=== PATIENT | male | born 1965 | race Caucasian/White ===

== ENCOUNTER → 2016-12-08 | Outpatient (CLI) | payer MEDICAID ==
[2015-03-18 19:29] VITALS: BP 155/99
[2016-12-08 09:26] LABS: BASOPHILS # (AUTO) 0.1 X10^3/uL (0.0-0.1); HEMATOCRIT 48.9 % (42.0-54.0); LYMPHOCYTES % (AUTO) 34.1 % (21.0-51.0); MEAN CORPUSCULAR HEMOGLOBIN 34.4 pg (27.0-34.0); MEAN CORPUSCULAR HGB CONC 34.8 g/dL (33.0-35.0); MEAN CORPUSCULAR VOLUME 98.8 fL (80.0-100.0); MEAN PLATELET VOLUME 8.2 fL (7.4-11.0); MONOCYTES # (AUTO) 0.7 x10^3/uL (0.3-0.8); MONOCYTES % (AUTO) 7.8 % (0.0-13.0); NEUTROPHILS % (AUTO) 46.1 % (42.0-75.0); PLATELET COUNT 200 X10^3/uL (150.0-450.0); RED BLOOD COUNT 4.95 X10^6/uL (4.7-6.0); RED CELL DISTRIBUTION WIDTH 13.7 % (11.6-16.5); WHITE BLOOD COUNT 8.7 X10^3/uL (3.6-10.0)
--- NOTE | 2016-12-08 09:41 | RAD ---
Examination: X-rays of the left knee. Clinical history: Left knee pain. Technique: Three views of the left knee were obtained. Comparison: None available. Findings: No acute fracture, dislocation, or destructive bony lesion is noted. Moderate tricompartmental osteoarthritic changes are noted. Calcific densities are seen in the anterior and posterior aspects of the joint, worrisome for loose intra-articular bodies. No joint effusion is noted. Impression: 1. No acute fracture or dislocation. 2. Moderate tricompartmental osteoarthritic changes. 3. Calcific densities are seen in the anterior and posterior aspects of the joint, worrisome for loo se intra-articular bodies. Reported By:
[2016-12-08 09:53] LABS: CREATININE,URINE 112.8 mg/dL (40-278); MICROALBUMIN,URINE 8.1 mg/L
[2016-12-08 09:59] LABS: ALANINE AMINOTRANSFERASE 31 Units/L (12-78); ALKALINE PHOSPHATASE 113 Units/L (46-116); ASPARTATE AMINO TRANSFERASE 17 Units/L (15-37); BLOOD UREA NITROGEN 16 mg/dL (7-18); CALCIUM 8.9 mg/dL (8.5-10.1); CARBON DIOXIDE 29.5 mmol/L (21-32); CHLORIDE 104 mmol/L (98-107); CHOL/HDL RATIO 3.4 (0.0-5.0); CHOLESTEROL 191 mg/dL (0-200); GLUCOSE 103 mg/dL (65-99); HDL CHOLESTEROL 57 mg/dL (40-60); SODIUM 141 mmol/L (136-145); TOTAL PROTEIN 8.4 g/dL (6.4-8.2); TRIGLYCERIDES 128 mg/dL (0-150); eGFR BLACK RACES 59 (>60); eGFR NON BLACK RACES 48 (>60)
[2016-12-08 10:04] LABS: ERYTHROCYTE SEDIMENTATION RATE 8 MM/HOUR (0-15)
== END ==
LOC: LAB 09:04
PROVIDERS: ATTEND Nurse Practitioner Family
DX: M70.52 Other bursitis of knee, left knee (principal); I10 Essential (primary) hypertension; E78.4 Other hyperlipidemia; M25.562 Pain in left knee
CPT/HCPCS: 36415; 73564; 80053; 80061; 82043; 85025; 85652; 86140

== ENCOUNTER 2017-05-11 08:33 | Emergency (ER) | payer MEDICAID ==
--- NOTE | 2017-05-11 09:09 | DR.GENAD ---
HPI - PCP Primary Care Physician: Mike CONSTANTINO - Complaint/Symptoms Chief Complaint:: PT. C/O PAIN TO THE NECK, SHOULDERS, AND ARMS. PT. STATES HE SEEN A DOCTOR IN [place] A WHILE BACK AND THEY TOLD HIM HE HAD A PINCHED NERVE. - Source History Provided: Patient, Significant Other - Mode of Arrival Mode of Arrival: Ambulatory - Timing Onset of Chief Complaint: 05/07/17 PMH - PMH Past Medical History: Yes Past Medical History: Arthritis, Depression, Dyslipidemia, GERD, Hypertension Past Surgical History: Yes Surgical History: Appendectomy, Joint Replacement - Family History History of Family Medical Conditions: Yes Family Medical History: Diabetes Mellitus, Cancer - Social History Does patient currently use any type of tobacco product: Yes Have you used tobacco products in the last 12 months: Yes Type of Tobacco Use: Cigarettes How many years tobacco product used: 32 Does any household member use tobacco: No Alcohol Use: None Do you use any recreational Drugs:: No Lives With: Significant Other Lives Where: Home - infectious screening In the last 2 months have you had wt loss of >10#?: NO Have you had fever, night sweats or hemotysis?: No Have you traveled outside the country in the last 6 months?: No Isolation: Standard ROS - Review of Systems Eyes: No Symptoms Reported ENTM: No Symptoms Reported Respiratoy: No Symptoms Reported Cardiovascular: No Symptoms Reported Gastrointestinal/Abdominal: No Symptoms Reported Genitourinary: No Symptoms Reported Neurological: No Symptoms Reported Musculoskeletal: Neck Pain Integumentary: No Symptoms Reported Hematologic/Lymphatic: No Symptoms Reported Endocrine: No Symptoms Reported Psychiatric: No Symptoms Reported All Other Systems: Reviewed and Negative PE - Vital Signs Vitals: Temperature 97.6 F Pulse Rate [Left Brachial] 79 Pulse Rate 69 Respiratory Rate 15 Blood Pressure [Left Arm] 159/94 Blood Pressure 167/121 O2 Sat by Pulse Oximetry 100 - General Limitations: No Limitations General Appearance: Alert, In No Apparent Distress - Head Head Exam: Normal Inspection, Atraumatic - Eyes Eye exam: Normal Appearance, PERRL, EOMI - ENT ENT Exam: Normal Exam, Normal Oropharynx External Ear Exam: Normal External Inspection TM/Canal Exam: Bilateral Normal Nose Exam: Normal Nose Exam Mouth Exam: Normal Inspection Throat Exam: Normal Inspection - Neck Neck Exam: Normal Inspection, Tenderness (Right mid cervical) - Chest Chest Inspection: Normal Inspection, Symmetric Chest Wall Rise - Respiratory Respiratory Exam: Normal Lung Sounds Bilat Respiratory Exam: Bilateral Clear to Auscultation - Cardiovascular Cardiovascular Exam: Regular Rate, Normal Rhythm - Abdominal Exam Abdominal Exam: Normal Inspection Abdominal Tenderness: negative: RUQ, RLQ, LUQ, LLQ, Epigastrium, Suprapubic, Diffuse, Mild, Moderate, Severe, Other - Extremities Extremities Exam: Normal Inspection - Back Back Exam: Normal Inspection - Neurologic Neurological Exam: Alert, Oriented X3, CN II-XII Intact - Psychiatric Psychiatric Exam: Normal Affect - Skin Skin Exam: Warm, Dry, Intact ROR - XRAY XRAY Interpreted by: Radiologist (Cervical spine: There is normal alignment without fracture or significant disc space narrowing. There are mild osteophytes diffusely about the cervical disc spaces. There is heavy calcification in the right carotid bifurcation. Impressipn: Mild to moderate diffuse degenerative disc disease.) - Diagnosis Discharge Problem: Cervical radiculopathy due to degenerative joint disease of spine - Discharge Plan Condition: Stable - Follow ups/Referrals Follow ups/Referrals: SHARA CONSTANTINO [Primary Care Provider] - 3 days - Instructions
[2017-05-11] MEDS ORDERED: TORADOL 60 MG VIAL IM ONE (09:10)
[2017-05-11 09:11] VITALS: BP 159/94
[2017-05-11] MEDS ORDERED: TORADOL 60 MG VIAL ONE (09:12)
--- NOTE | 2017-05-11 10:07 | RAD ---
History: Neck and arm pain Study: Four views of the cervical spine including lateral, odontoid, AP and swimmer's view. Comparison: None Findings: There is normal alignment without fracture or significant disc space narrowing. There are m ild osteophytes diffusely about the cervical disc spaces. There is heavy calcification in the right c arotid bifurcation. Impression: [id number] diffuse degenerative disc disease Reported By:
== END 2017-05-11 10:49 | disposition home or self-care (01) ==
LOC: ER 08:41
DX: M50.10 Cervical disc disorder with radiculopathy, unspecified cervical region (principal)
CPT/HCPCS: 72040; 96372; 99282; J1885